=== PATIENT | female | born 1980 | race Caucasian/White ===

== ENCOUNTER 2018-09-12 15:29 | Emergency (ER) | payer OTHER ==
[~2018-09-12] VITALS: Wt 54.4 kg
[~2018-09-12 15:29] MED LIST: FLEXERIL PO; MACROBID 100 M100 M1 PO; NAPROXEN DELAY500 M1 PO; ZOFRAN ODT4 MG PO
[2018-09-12 15:56] LABS: URINE BILIRUBIN NEGATIVE (Negative); URINE BLOOD 1+ (Negative); URINE CLARITY CLEAR; URINE COLOR YELLOW; URINE GLUCOSE-RANDOM* NEGATIVE (Negative); URINE KETONES 1+ (Negative); URINE PROTEIN (DIPSTICK) NEGATIVE (Negative); URINE SPECIFIC GRAVITY 1.015 (1.005-1.035); URINE UROBILINOGEN 0.2 E.U./dl (0.2-1.0)
[2018-09-12 16:00] LABS: URINE LEUKOCYTES-REFLEX 1+ (Negative); URINE NITRITE-REFLEX POSITIVE (Negative)
[2018-09-12 16:10] LABS: SQUAMOUS 4-10 Moderate /LPF (0-3)
[2018-09-12 16:11] LABS: CASTS None Seen /LPF (None Seen); CRYSTALS None Seen /LPF (None Seen); URINE RBC 3-10 Few /HPF (0-2); URINE WBC-REFLEX 6-15 Few /HPF (0-5)
[2018-09-12 16:24] LABS: HEMATOCRIT 41.2 % (37.0-47.0); HEMOGLOBIN 14.4 gm/dL (12.0-15.0); MCH 31.1 pg (26.0-34.0); MCHC 34.9 g/dL (28.0-37.0); MCV 88.9 fL (80.0-100.0); RBC 4.63 mil/uL (4.20-5.00); RDW 12.3 % (10.5-14.5); WBC 9.7 thou/uL (4.0-11.0)
[2018-09-12 16:32] LABS: CALCIUM 9.5 mg/dL (8.5-10.1); CREATININE 0.8 mg/dL (0.6-1.0); POTASSIUM 3.6 mmol/L (3.5-5.1)
[2018-09-12 16:38] LABS: ALBUMIN 4.1 g/dL (3.4-5.0); TOTAL BILIRUBIN 0.5 mg/dL (<0.1-1.0)
[2018-09-12] MEDS ORDERED: TYLENOL EXTRA500 MG PO (18:26)
[2018-09-12] MEDS ORDERED: KEFLEX500 M1 PO (18:26)
[2018-09-12] MEDS ORDERED: IBUPROFEN 400400 M2 PO (18:26)
[2018-09-12 20:07] VITALS: BP 96/62
== END 2018-09-12 20:10 | disposition home or self-care (01) ==
LOC: ER 15:29
PROVIDERS: Student in an Organized Health Care Education/Training Program
DX: N12 Tubulo-interstitial nephritis, not specified as acute or chronic (principal); Z98.890 Other specified postprocedural states